=== PATIENT | female | born 1950 ===

== ENCOUNTER 2023-12-26 08:20 | Day surgery (SDC) | payer OTHER ==
[~2023-12-26 08:20] MED LIST: MULTIPLE VITAM1 EAC2 PO; NEXIUM 24HR20 M1 PO; TOPROL XL25 M1 PO; ZESTRIL30 MG PO
[2023-12-26] MEDS ORDERED: TRAM1TAB98 PO (12:44)
[2023-12-26] MEDS ORDERED: MACROBID 100 M100 MG PO (12:44)
[2023-12-26] MEDS ORDERED: CEFAZOLIN SODIUM 1,000 MG VIAL IV ONE ×2 (12:45)
[2023-12-26] MEDS ORDERED: MORPHINE SULFATE 4 MG/ML VIAL IV ONE (14:40)
[2023-12-26] MEDS ORDERED: ENALAPRILAT DIHYDRATE 1.25 MG/ML VIAL IV ONE (14:45)
== END 2023-12-26 17:25 | disposition home or self-care (01) ==
LOC: CIR.AMB 08:20 → O/R 11:11 → CIR.AMB 11:11 → O/R 17:25
PROVIDERS: ATTEND Obstetrics & Gynecology Gynecology
DX: N39.3 Stress incontinence (female) (male) (principal)
CPT/HCPCS: 57288; C1771